=== PATIENT | male | born 1970 | race Hispanic/Latino ===

== ENCOUNTER 2024-08-17 13:13 | Emergency (ER) | payer BC ==
[~2024-08-17] VITALS: Ht 167.6 cm; Wt 78.5 kg
[2024-08-17] MEDS: TRIAMCINOLONE ACETONIDE 40 MG/ML 1ML VIAL IM ONE (13:34)
[2024-08-17] MEDS: ORPHENADRINE 60MG/2ML IM ONE (13:34)
--- NOTE | 2024-08-17 14:49 | ERN ---
General Chief Complaint: Back Pain or Injury Stated Complaint: BACK PAIN Time Seen by MD: 13:16 Source: patient History of Present Illness Initial Comments In his is a 53-year-old gentleman coming in complaining of lower back pain. Per patient this lower back has been ongoing for a couple of days. He states he was doing some physical activity at and he might have strained his back. Allergies: Coded Allergies: No Known Drug Allergies (Unverified Allergy, Unknown, 08/17/24) Past Medical History Past Medical History: Other Medical History Other: back pain Past Surgical History: None Surgical History Other: denies past sx hx ROS Dictation CONSTITUTIONAL: No chills, no fever, no weakness, no diaphoresis, no malaise. HEAD/FACE: No signs of trauma. EENT: No eye pain, no blurred vision, no tearing, no double vision, no ear pain, no ear discharge, no nose pain, no nasal congestion, no throat pain, no throat swelling, no mouth pain. RESPIRATORY: No cough, no orthopnea, no SOB, no stridor, no wheezing. CARDIOVASCULAR: No chest pain, no edema, no palpitations, no syncope. GASTROINTESTINAL/ABDOMINAL: No abdominal pain, no constipation, no diarrhea, no nausea, no vomiting. GENITOURINARY: No abnormal discharge, no dysuria, no frequent urination, no hematuria. No complaints of pain in the genitals. MUSCULOSKELETAL: back pain, no gout, no joint pain, no joint swelling, no muscle pain, no muscle stiffness, no neck pain. INTEGUMENTARY: No change in color, no change in hair/nails, no dryness, no lesion, no lumps, no rash. NEUROLOGICAL/PSYCH: No anxiety, not depressed, no emotional problem, no headache, no numbness, no pre-existing deficit, no history of seizures, no tremors, no weakness. HEMATOLOGIC/LYMPHATIC: Not anemic, no history of blood clots, no apparent bleeding, no bruising, glands not swollen. All Systems Negative, Except as Noted. Physical Exam Physical Exam Dictation VITAL SIGNS: Reviewed. GENERAL APPEARANCE: Alert, oriented x3, no acute distress, obese. HEAD AND FACE: Non-traumatic. EYES: PERRL, pink conjunctivas, eyelid no trauma, anterior chamber clear. EARS: Pinnas intact and no signs of trauma or erythema. Ear canals clear and no discharge. TMs no erythema. NOSE: No discharge, no bleeding. OROPHARYNX: Mouth normal, teeth no caries, tongue pink. Pharynx clear, no erythema. Tonsils no exudates, no abscesses noted. Mucous membrane moist. NECK: Supple, non-tender, no thyromegaly, no masses, no JVD, no bruits. BREAST: Deferred. CHEST: No tenderness, no crepitus, no paradoxical movement, no retractions. LUNGS: Clear, well-ventilated, symmetric, no rales, no wheezing, no rhonchi, no stridor, good breath sounds bilaterally. HEART: Regular rate, regular rhythm, no murmur, no gallops. VASCULAR: No peripheral edema. ABDOMEN: Soft, positive bowel sounds, nondistended, no guarding, nontender, no rebound, no masses no hepatomegaly, no splenomegaly, no Pineda's sign, no hernias. RECTAL: Deferred. GENITAL: Deferred. NEUROLOGICAL: Normal speech, gross motor function intact, gross sensory function intact. MUSCULOSKELETAL: Neck nontender, full range of motion, back nontender, full range of motion. EXTREMITIES: Nontender, full range of motion. SKIN: Color pink, dry, no turgor, no rash, no lacerations, no abrasions, no contusions. LYMPHATICS: Deferred. Results Laboratory and Microbiology Labs Reviewed?: Yes EKG/XRAY/US/CT/MRI X-RAY Comment [place] [address] [place] [id number] IMAGING REPORT Signed PATIENT: CARLOS PURVIS MR#: [id number] : 1970 SEX: M AGE: 53 LOCATION: [facility] ORDER 1320 STATUS: [facility] REPORT#: [id number] SERVICE 1319 REASON: back pain ORDERING PHYSICIAN: ANUPAMA MADDOX MD PROCEDURE: LUMB 2 3VW - LUMBAR SPINE 2-3VWS EXAM: CR Lumbar Spine, 2 View. CLINICAL HISTORY: back pain COMPARISON: None provided. FINDINGS: BONES: No acute fracture or aggressive appearing osseous lesion. ALIGNMENT: Alignment is within normal limits. No significant scoliosis. DISCS / DEGENERATIVE CHANGES: Mild spondylosis evident by anterior osteophytes, syndesmophytes, and facet joint osteoarthritis at L5-S1. Severe disc disease at L5-S1. Minimal grade 1 anterolisthesis of L4 with respect L5 related to facet joint osteoarthritis. SOFT TISSUES: The soft tissues are unremarkable. IMPRESSION: 1. No acute osseous injury. 2. Severe disc disease at L5-S1. /[place] DICTATED BY: MARSHA ARIAS Jr., MD DATE: 08/17/241554 ELECTRONICALLY SIGNED BY: MARSHA ARIAS Jr., MD DATE: 08/17/241554 MDM MDM: Differential diagnosis: Lumbar strain, cocaine abuse, Rationale: Tests considered and ordered secondary to shared decision making include: Previous outside records reviewed: Old ER visits. Risk of complication and/or morbidity or mortality of patient management: None Medications-Per medication reconciliation Need for hospitalization: Patient does not meet criteria for hospitalization. Patient is a 53-year-old gentleman coming in complaining of lower back pain. Pain was exacerbated while working carrying some boxes he states. X-ray did disclose severe this disease of L5 and S1. Medication will be provided for symptomatic relief also advised him appropriate follow up with PCP and/or orthopedic technician for long-term management. ED Course Orders Procedure Category Date Status Time Orphenadrine Citrate PHA 08/17/24 Complete (Norflex) 13:30 Triamcinolone Acet PHA 08/17/24 Complete 40mg/Ml 1ml (Kenalog 13:30 Lumbar Spine 2-3vws RAD 08/17/24 Resulted 13:19 Lidocaine (Lidocaine PHA 08/17/24 Transmitted Patch 4%) 15:00 Current Medications Medications (Trade) Dose Ordered Sig/Brisa Route PRN Reason Start Time Stop Time Status Last Admin Dose Admin Orphenadrine Citrate (Norflex) 60 mg ONCE ONCE IM 08/17/24 13:30 08/17/24 13:31 DC 08/17/24 13:34 Triamcinolone Acetonide (Kenalog 40) 40 mg ONCE ONCE IM 08/17/24 13:30 08/17/24 13:31 DC 08/17/24 13:34 Vital Signs Date Time Temp Pulse Resp B/P (MAP) Pulse Ox O2 Delivery O2 Flow Rate FiO2 08/17/24 13:21 98.8 85 18 145/92 98 Room Air* 0 21 08/17/24 13:17 98.8 85 18 145/92 98 Room Air 0 DX & DISP Disposition: Discharge Departure Impression: Primary Impression: Osteoarthritis of lower back Condition: Stable Scripts Methylprednisolone (Medrol) 8 Mg Tablet 1 TAB PO BID for 5 Days, #10 TAB 0 Refills Day 1: 8 mg PO before breakfast, 4 mg after lunch and after dinner, and 8 mg at bedtime Day 2: 4 mg PO before breakfast, after lunch, and after dinner and 8 mg at bedtime Day 3: 4 mg PO before breakfast, after lunch, after dinner, and at bedtime Day 4: 4 mg PO before breakfast, after lunch, and at bedtime Day 5: 4 mg PO before breakfast and at bedtime Day 6: 4 mg PO before breakfast Prov: ANUPAMA MADDOX MD 08/17/24 Naproxen (Naproxen) 500 Mg Tablet 1 TAB PO BID for pain for 7 Days, #14 TAB 0 Refills Prov: ANUPAMA MADDOX MD 08/17/24 Methocarbamol (Robaxin) 750 Mg Tab 1 TAB PO BID for 7 Days, #14 TAB 0 Refills Prov: ANUPAMA MADDOX MD 08/17/24 Additional Instructions: FOLLOW-UP WITH PRIMARY CARE PROVIDER IN 1 TO 2 DAYS. TAKE MEDICATIONS DIRECTED HERE IN THE EMERGENCY ROOM. OKAY TO CONTINUE HOME MEDICATIONS UNLESS OTHERWISE DISCUSSED DURING YOUR VISIT IN THE EMERGENCY ROOM TODAY. RETURN TO YOUR NEAREST EMERGENCY ROOM IF SYMPTOMS WORSEN OR IF THERE IS NO IMPROVEMENT. CALL 911 IF YOU NEED IMMEDIATE ASSISTANCE. TAKE TYLENOL [id number] NEEDED AND IF NO CONTRAINDICATIONS ARE PRESENT. INCREASE ORAL HYDRATION. A WOUND CULTURE OR URINE CULTURE WAS ORDERED HERE IN THE EMERGENCY ROOM DEPARTMENT PLEASE FOLLOW-UP WITH PRIMARY CARE PROVIDER AND ADVISE THEM TO GET REPORTS FROM OUR FACILITY. IF YOU HAD ANY DULCE MARIA WRAP/SPLINTS THAT WERE APPLIED HERE, PLEASE DO NOT REMOVE THEM UNTIL YOU SEE YOUR PRIMARY CARE OR SPECIALTY. Referrals: Referrals: ALEC CALVERT MD (PCP) MARIPOSA VANESSA MD Time of Disposition: 15:01 ANUPAMA MADDOX MD Aug 17, 2024 14:49
--- NOTE | 2024-08-17 14:56 | HMCIMG ---
EXAM: CR Lumbar Spine, 2 View. CLINICAL HISTORY: back pain COMPARISON: None provided. FINDINGS: BONES: No acute fracture or aggressive appearing osseous lesion. ALIGNMENT: Alignment is within normal limits. No significant scoliosis. DISCS / DEGENERATIVE CHANGES: Mild spondylosis evident by anterior osteophytes, syndesmophytes, and facet joint osteoarthritis at L5-S1. Severe disc disease at L5-S1. Minimal grade 1 anterolisthesis of L4 with respect L5 related to facet joint osteoarthritis. SOFT TISSUES: The soft tissues are unremarkable. IMPRESSION: 1. No acute osseous injury. 2. Severe disc disease at L5-S1. /[place]
[2024-08-17] MEDS ORDERED: NAPR-1194 PO (15:01)
[2024-08-17] MEDS ORDERED: METH-662 PO (15:01)
[2024-08-17] MEDS ORDERED: METH8TAB PO (15:05)
[2024-08-17] MEDS: LIDOCAINE 4% ADH..PATCH TP ONE (15:08)
[2024-08-17 15:11] VITALS: BP 140/80; PULSE 76; RESP 18; TEMP 98.7; O2SAT 98
== END 2024-08-17 15:18 | disposition home or self-care (01) ==
LOC: EDH 13:13
DX: M19.90 Unspecified osteoarthritis, unspecified site (principal)
CPT/HCPCS: 99284; 72100; 96372 ×2; J3301; J2360